=== PATIENT | male | born 1975 | race Caucasian/White ===

== ENCOUNTER 2023-10-04 18:05 | Emergency (ER) | payer OTHER, SELFPAY ==
[2023-10-04 18:07] VITALS: BP 135/89
[2023-10-04 18:26] VITALS: BMI 27.2
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
[2023-10-04] MEDS: MOTRIN 600 MG PO (18:45)
[2023-10-04] MEDS: TYLENOL 1000 MG PO (18:45)
== END 2023-10-04 20:00 | disposition home or self-care (01) ==
LOC: EMR 18:05
PROVIDERS: EMERGENCY PHYSICIAN Student in an Organized Health Care Education/Training Program; FAMILY PHYSICIAN Family Medicine
DX: S06.0XAA Concussion with loss of consciousness status unknown, initial encounter (principal); V57.0XXA Driver of pick-up truck or van injured in collision with fixed or stationary object in nontraffic accident, initial encounter
CPT/HCPCS: 99284; 70450

== ENCOUNTER 2023-12-17 15:48 | Emergency (ER) | payer OTHER, SELFPAY ==
[2023-12-17 15:53] VITALS: BP 139/99
[2023-12-17 18:44] VITALS: BP 129/84; BMI 29.7
[2023-12-17 18:56] LABS: % Basophils 0.9 % (0-2); % Immature Granulocytes 0.2 % (0-0.5); % Lymphocytes 35.2 % (20.5-51.1); % Monocytes 7.2 % (1.7-9.3); % Neutrophils 54.5 % (42.2-75.2); Absolute Basophils 0.1 10^3/uL (0-0.2); Absolute Eosinophils 0.1 10^3/uL (0-0.7); Absolute Lymphocytes 2.2 10^3/uL (1.2-3.4); Absolute Monocytes 0.5 10^3/uL (0.1-0.6); Absolute Neutrophils 3.5 10^3/uL (1.4-6.5); Hematocrit 41.2 % (39.0-52.0); Mean Corp Hgb Conc. 36.4 g/dL (33.0-37.0); Mean Corpuscular Hgb 32.6 pg (27.0-31.0); Mean Corpuscular Volume 89.6 fL (80.0-94.0); Mean Platelet Volume 10.3 fL (7.4-10.4); Nucleated Red Blood Cells % 0 % (-); Platelet Count 200 10^3/uL (130-400); Red Cell Dist. Width 11.5 % (11.5-14.5); White Blood Cell Count 6.4 10^3/uL (4.8-10.8)
[2023-12-17 19:10] LABS: ALT (SGPT) 20 U/L (0-50); AST (SGOT) 26 U/L (17-59); Albumin 4.3 g/dl (3.5-5.0); Alkaline Phosphatase 76 U/L (38-126); Blood Urea Nitrogen 23 mg/dl (9-20); Calcium 9.8 mg/dl (8.4-10.2); Carbon Dioxide 29 mmol/L (22-30); Chloride 103 mmol/L (98-107); Estimated Creatinine Clearance 98 ml/min; Glucose 87 mg/dl (70-99); Potassium 3.8 mmol/L (3.5-5.1); Sodium 136 mmol/L (135-145); Total Bilirubin 0.7 mg/dl (0.2-1.3); Total Protein 6.6 g/dl (6.3-8.2); eGFR > 60.00
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
[2023-12-17 19:25] VITALS: BP 125/80
[2023-12-19 16:55] LABS: Lyme Antibody Screen, EIA Negative (Negative)
== END 2023-12-17 19:30 | disposition home or self-care (01) ==
LOC: EMR 15:48
PROVIDERS: Nurse Practitioner; EMERGENCY PHYSICIAN Emergency Medicine; FAMILY PHYSICIAN Family Medicine
DX: R51.9 Headache, unspecified (principal)
CPT/HCPCS: 99284; 70450; 80053; 85025; 86618

== ENCOUNTER → 2024-03-16 18:09 | Outpatient (REF) | payer OTHER, SELFPAY | LOC: MRI 18:09 | PROVIDERS: ATTENDING PHYSICIAN Orthopaedic Surgery | DX: M25.531 Pain in right wrist (principal) | CPT/HCPCS: 73221 ==

== ENCOUNTER 2024-06-18 09:18 | Emergency (ER) | payer OTHER, SELFPAY ==
[2024-06-18 09:23] VITALS: BP 145/96
[2024-06-18] MEDS: DECADRON 10 MG PO (10:58)
[2024-06-18] MEDS: TORADOL 30 MG IM (10:58)
[2024-06-18] MEDS: VALIUM 5 MG PO (10:58)
[2024-06-18] MEDS: PERCOCET 5/325 2 TABLET PO (12:23)
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
[2024-06-18 13:34] VITALS: BP 138/68
== END 2024-06-18 13:41 | disposition home or self-care (01) ==
LOC: EMR 09:18
PROVIDERS: EMERGENCY PHYSICIAN Emergency Medicine
DX: M54.16 Radiculopathy, lumbar region (principal); M54.50 Low back pain, unspecified; K21.9 Gastro-esophageal reflux disease without esophagitis; Z88.1 Allergy status to other antibiotic agents
CPT/HCPCS: 99284; 96372; 72100

== ENCOUNTER 2024-07-11 19:46 | Emergency (ER) | payer OTHER, SELFPAY ==
[2024-07-11 19:47] VITALS: BP 172/111
[2024-07-11 20:23] LABS: Blood Urea Nitrogen 19 mg/dl (9-20); Calcium 9.7 mg/dl (8.4-10.2); Carbon Dioxide 27 mmol/L (22-30); Chloride 100 mmol/L (98-107); Glucose 95 mg/dl (70-99); Lipase 112 U/L (23-300); Sodium 136 mmol/L (135-145); eGFR > 60.00
[2024-07-11 21:02] VITALS: BMI 29.3
[2024-07-11 21:03] VITALS: BP 151/104
[2024-07-11 21:06] LABS: % Basophils 0.9 % (0-2); % Eosinophils 2.6 % (0-6); % Immature Granulocytes 0.3 % (0-0.5); % Lymphocytes 30.8 % (20.5-51.1); % Monocytes 7.7 % (1.7-9.3); % Neutrophils 57.7 % (42.2-75.2); Absolute Basophils 0.1 10^3/uL (0-0.2); Absolute Eosinophils 0.2 10^3/uL (0-0.7); Absolute Monocytes 0.5 10^3/uL (0.1-0.6); Absolute Neutrophils 3.7 10^3/uL (1.4-6.5); Hematocrit 46.7 % (39.0-52.0); Hemoglobin 16.3 g/dL (13.0-18.0); Mean Corp Hgb Conc. 34.9 g/dL (33.0-37.0); Mean Corpuscular Hgb 32.3 pg (27.0-31.0); Mean Corpuscular Volume 92.7 fL (80.0-94.0); Mean Platelet Volume 10.4 fL (7.4-10.4); Nucleated Red Blood Cells % 0 % (-); Platelet Count 217 10^3/uL (130-400); Red Blood Cell Count 5.04 10^6/uL (4.70-6.10); Red Cell Dist. Width 11.6 % (11.5-14.5); White Blood Cell Count 6.5 10^3/uL (4.8-10.8)
[2024-07-11] MEDS: ZOFRAN 4 MG IV (21:21)
[2024-07-11] MEDS: DILAUDID 0.5 MG IV ×2 (21:24→21:59)
[2024-07-11] MEDS: NSS 1000 IV (21:27)
[2024-07-11 22:00] VITALS: BP 150/97
[2024-07-11 23:15] VITALS: BP 142/100
[2024-07-11 23:16] VITALS: BP 142/100
[2024-07-11] MEDS: NORCO 5/325 1 TABLET PO (23:30)
[2024-07-11] MEDS: AUGMENTIN 875 MG/125 MG 1 TABLET PO (23:30)
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
== END 2024-07-11 23:34 | disposition home or self-care (01) ==
LOC: EMR 19:46
PROVIDERS: Emergency Medicine; EMERGENCY PHYSICIAN Emergency Medicine; FAMILY PHYSICIAN Family Medicine
DX: K57.32 Diverticulitis of large intestine without perforation or abscess without bleeding (principal); K21.9 Gastro-esophageal reflux disease without esophagitis
CPT/HCPCS: 96374; 96375; 96376; 96361; 99284; 74177; 80048; 83690; 85025; Q9967